=== PATIENT | male | born 1945 | race Asian ===

== ENCOUNTER 2021-01-05 22:54 | Inpatient (IN) | payer OTHER, MEDICAID, SELFPAY ==
[~2021-01-05] VITALS: Ht 170.2 cm; Wt 70.3 kg
[2021-01-05 22:54] VITALS: BP_SYST 126
[2021-01-06] VITALS (26 sets, daily range): BP systolic 71–176
[2021-01-06] MEDS ORDERED: IPRATROPIUM/ALBUTEROL SULFATE 3 ML AMPUL.NEB (DUONEB) INH ONE (01:30)
[2021-01-06] MEDS ORDERED: cefTRIAXone 1 GM IVPB PREMIX 50 ML IV ONE (01:30)
[2021-01-06] MEDS ORDERED: AZITHROMYCIN 250 MG TABLET PO ONE (01:30)
[2021-01-06] MEDS ORDERED: DEXAMETHASONE SOD PHOSPHATE 10 MG/ML VIAL IVP ONE (01:30)
[2021-01-06 03:16] LABS: ANION GAP 6 (5-15); CHLORIDE 96 mmol/L (98-107); CREATININE 1.16 mg/dL (0.55-1.30); GLUCOSE 115 mg/dL (70-99); POTASSIUM 3.8 mmol/L (3.5-5.1); SODIUM SERUM 131 mmol/L (136-145); UREA NITROGEN, BLOOD 18 mg/dL (8-21)
[2021-01-06 03:27] LABS: ALANINE AMINOTRANSFERASE 137 U/L (12-78); ALBUMIN 1.7 g/dL (3.4-4.8); ASPARTATE AMINOTRANSFERASE 65 U/L (10-37); TOTAL BILIRUBIN 0.8 mg/dL (0.0-1.0)
[2021-01-06 04:22] LABS: BASOPHILS % (AUTO) 0.3 % (0.0-2.0); HEMATOCRIT 30.6 % (36-54); HEMOGLOBIN 10.3 g/dL (14.0-18.0); LYMPHOCYTES # (AUTO) 0.6 K/uL (1.0-5.5); LYMPHOCYTES % (AUTO) 3.3 % (20.5-51.5); MEAN CORPUSCULAR HEMOGLOBIN 33 pg (27-31); MEAN CORPUSCULAR HGB CONC 34 % (32-36); MEAN CORPUSCULAR VOLUME 97 fL (79.0-98.0); MONOCYTES % (AUTO) 5.4 % (1.7-9.3); NEUTROPHILS # (AUTO) 16.2 K/uL (1.8-7.7); PLATELET COUNT (AUTO) 219 K/uL (130-430); RED BLOOD CELL COUNT(AUTO) 3.15 MIL/uL (4.2-6.2); RED CELL DISTRIBUTION WIDTH 15.6 % (9.0-15.0); WHITE BLOOD COUNT (AUTO) 17.8 K/uL (4.8-10.8)
[2021-01-06] MEDS ORDERED: ENOXAPARIN SODIUM 60 MG/0.6 ML SYRINGE SUBCUT ONE (05:00)
[2021-01-06] MEDS ORDERED: IOHEXOL 350 mgI/mL, 150 ML INFUS..BTL IV ONE (06:14)
[2021-01-06] MEDS ORDERED: ALBUTEROL SULFATE 0.083% 2.5 MG/3 ML VIAL.NEB INH PRN (06:15)
[2021-01-06] MEDS ORDERED: cefTRIAXone 1 GM in D5W 50 ML IV SCH ×2 (06:15→21:00)
[2021-01-06] MEDS ORDERED: IPRATROPIUM BROM 0.5 MG/2.5 ML VIAL.NEB (ATROVENT) INH PRN (06:15)
[2021-01-06] MEDS ORDERED: AZITHROMYCIN 500 MG in NS 250 ML IV SCH (06:15)
[2021-01-06] MEDS ORDERED: DECADRON 4 MG TABLET PO SCH ×2 (06:15→21:00)
[2021-01-06] MEDS ORDERED: ALBUTEROL SULFATE 0.083% 2.5 MG/3 ML VIAL.NEB INH SCH (07:00)
[2021-01-06] MEDS ORDERED: IPRATROPIUM BROM 0.5 MG/2.5 ML VIAL.NEB (ATROVENT) INH SCH (07:00)
[2021-01-06] MEDS ORDERED: AZITHROMYCIN 500 MG/VIAL (ZITHROMAX) IV ONE (07:01)
[2021-01-06] MEDS ORDERED: DEXAMETHASONE SOD PHOSPHATE 10 MG/ML VIAL IVP SCH (09:00)
[2021-01-06] MEDS ORDERED: NALOXONE HCL 0.4 MG/ML AMP (NARCAN) IVP PRN (09:45)
[2021-01-06] MEDS ORDERED: MORPHINE SULFATE IN 0.9 % NACL 100 ML IV PRN (09:45)
[2021-01-06] MEDS ORDERED: PROPOFOL DRIP 100 ML IV PRN (09:45)
[2021-01-06] MEDS ORDERED: NOREPINEPHRINE BITARTRATE 16 MG in NS 234 ML IV PRN (09:45)
[2021-01-06 11:11] LABS: INR 1.2 (0.80-1.20); PROTHROMBIN TIME 13.1 SECS (9.5-12.5)
[2021-01-06] MEDS ORDERED: VECURONIUM BROMIDE 50 MG in NS 50 ML IV PRN (12:15)
[2021-01-06] MEDS ORDERED: NACL 0.9% 500 ML IV ONE (15:30)
[2021-01-06] MEDS ORDERED: PHENYLEPHRINE HCL 100 MG in NS 240 ML IV PRN (15:30)
[2021-01-06] MEDS ORDERED: VASOPRESSIN 40 UNITS in NS 38 ML IV PRN (15:30)
[2021-01-07] VITALS: BP_SYST 92
[2021-01-07 01:00] VITALS: BP_SYST 105
[2021-01-07] MEDS ORDERED: NOREPINEPHRINE 4 MG/4 ML VIAL IV ONE (01:16)
[2021-01-07 02:00] VITALS: BP_SYST 94
== END 2021-01-07 03:45 | DRG 871 ==
LOC: SED 22:54 → SIC 01-06 06:03
PROVIDERS: ADMIT Internal Medicine Hospice and Palliative Medicine; ATTEND Internal Medicine Hospice and Palliative Medicine
PROC: 06HY33Z Insertion of Infusion Device into Lower Vein, Percutaneous Approach (ICD-10-PCS; principal; 2021-01-06)
PROC: 5A09357 Assistance with Respiratory Ventilation, Less than 24 Consecutive Hours, Continuous Positive Airway Pressure (ICD-10-PCS; 2021-01-06)
PROC: 0BH17EZ Insertion of Endotracheal Airway into Trachea, Via Natural or Artificial Opening (ICD-10-PCS; 2021-01-06)
PROC: 5A1935Z Respiratory Ventilation, Less than 24 Consecutive Hours (ICD-10-PCS; 2021-01-06)
DX: A41.9 Sepsis, unspecified organism (principal); U07.1 COVID-19; J12.82 Pneumonia due to coronavirus disease 2019; J96.21 Acute and chronic respiratory failure with hypoxia; K72.90 Hepatic failure, unspecified without coma
CPT/HCPCS: 36415; 36600; 71045; 71275; 76376; 80053; 82803-TC; 83605; 83880; 84484; 85025; 85379; 85610-TC; 85730-TC; 87040-TC; 93005; 94002; 94003; 94640; 99291; 99292; J0456; J0696; J1100; J1650; J2270; J2370; J2704; J3490; J7050; J7060; J7613; Q0144; Q9967; U0003